=== PATIENT | female | born 1965 | race Caucasian/White ===

== ENCOUNTER 2019-12-31 03:06 | Emergency (ER) | payer OTHER, SELFPAY ==
--- NOTE | 2019-12-31 03:15 | DI.CT.S_ITS ---
PROCEDURE: CT ABDOMEN PELVIS W CON INDICATIONS: 3 days abdominal pain TECHNIQUE: After the administration of intravenous contrast, 5 mm thick sections acquired from the diaphragm to the symphysis. 5 mm coronal and sagittal reformats were acquired. For radiation dose reduction, the following was used: automated exposure control, adjustment of mA and/or kV according to patient size. COMPARISON: None. FINDINGS: Image quality: Excellent. ABDOMEN: Lung bases: Lung bases are clear. Heart size is normal. There is a small hiatal hernia. Solid organs: Liver is normal in size and enhancement. Gallbladder is normal. Biliary system is non dilated. Pancreas enhances normally. Spleen is normal in size and enhancement. No adrenal nodules. Kidneys demonstrate normal size and enhancement, without hydronephrosis. Peritoneum and bowel: Bowel loops demonstrate normal wall thickness and caliber. There are scattered colonic diverticula. No findings to suggest acute diverticulitis. Normal appendix. No free fluid or air. Nodes and vessels: There is fat stranding in the upper abdomen at midline anterior to aorta adjacent to the celiac trunkand superior mesenteric artery. The proximal SMA appears indistinct with decreased enhancement suggesting partial thrombosis. Distally, the celiac trunk and superior mesenteric artery are both patent. No retroperitoneal or mesenteric adenopathy by size criteria. Aorta and inferior vena cava are normal in size. Miscellaneous: No ventral hernias. PELVIS: Genitourinary: Bladder wall thickness is normal. An IUD in uterus. Miscellaneous: No inguinal hernias or adenopathy. Bones: No suspicious bony lesions. No vertebral body compression fractures. Degenerative changes in lumbar spine. IMPRESSION: 1. Fat stranding in the upper abdomen at midline anterior to aorta adjacent to the celiac trunk and SMA. The proximal SMA is indistinct with decreased enhancement suggesting partial thrombosis. Distally, the celiac trunk and superior mesenteric artery are both patent. CT angiogram may be helpful for further evaluation. 2. Diverticulosis without acute diverticulitis. 3. Normal but appendix. 4. Small hiatal hernia. The result was discussed with Dr. Zhang in ER. Dictated by: Sarah Gamez M.D. on 12/31/2019 at 8:46 Approved by: Sarah Gamez M.D. on 12/31/2019 at 9:08
[2019-12-31] MEDS: HYDROMORPHONE 0.5 MG INJ IV (03:19)
[2019-12-31 03:20] VITALS: BP 154/74; PULSE 72; RESP 16; TEMP 36.8; O2SAT 97; BMI 41.1
[2019-12-31] MEDS: SODIUM CHLORIDE 0.9% 1,000 ML 1000 ML IV (03:20)
[2019-12-31 03:28] LABS: Appearance Urine UA CLEAR; Bilirubin Urine UA NEGATIVE (NEGATIVE); Color Urine UA YELLOW; Glucose Urine UA NEGATIVE (Negative); Ketones Urine UA NEGATIVE (NEGATIVE); Leukocyte Esterase Urine UA NEGATIVE (NEGATIVE); Nitrite Urine UA NEGATIVE (Negative); Occult Blood Urine UA NEGATIVE (Negative); Protein Urine UA NEGATIVE (Negative); RBC Urine None Seen (0-5/HPF); Specific Gravity Urine UA 1.025 (1.000-1.035); Urobilinogen Urine UA 0.2 E.U./dL (0.2); WBC Urine None Seen (0-5/HPF)
[2019-12-31 03:29] LABS: pH Urine UA 5.5 (4.5-8.0)
--- NOTE | 2019-12-31 03:37 | ED_ITS ---
HPI - Abdominal Pain General Chief Complaint: Abdominal Pain Stated Complaint: Abdominal pain Time Seen by Provider: 12/31/19 03:10 Source: patient and other Mode of arrival: other History of Present Illness HPI narrative: Otherwise healthy 54-year-old woman presents with 3 days of abdominal pain described as upper abdominal pain radiating through to her back became dramatically worse approximately 3 hours prior to arrival. She lives on [facility] and presents to the emergency department via airlift. She describes no fevers. She initially had a single episode of diarrhea and then has had loosely formed stools that she describes as significantly replenishment analyst and having almost no odor. She describes no fevers, chest pain, dyspnea, wheezing, lower extremity edema. Similarly, no throat pain ear pain skin rashes or findings or arthritis symptoms. Related Data Allergies Allergy/AdvReac Type Severity Reaction Status Date / Time Sulfa (Sulfonamide Allergy Anaphylaxis Verified 12/31/19 03:20 Antibiotics) Review of Systems Review of Systems Narrative: Remainder of review of systems including constitutional, ENT, cardiovascular, respiratory, GI, , musculoskeletal, skin, neurologic and psychiatric systems reviewed and are unremarkable except as noted in HPI. Patient History Surgical History (Updated 12/31/19 @ 03:39 by Mela Harper MD) H/O knee surgery (Acute) History of delivery (Acute) Social History Smoking Status: Never smoker Smoking Status: Never smoker alcohol intake frequency: a few times a week Substance Use Type: does not use Exam Narrative Exam Narrative: General: Healthy appearing, in no acute distress. Able to give a complete and coherent history. Well-nourished well-developed HEENT: Moist mucous membranes, normal sclera with reactive pupils, Neck: No JVD, supple Respiratory: Lungs are clear to auscultation, no wheezing no rales no rhonchi. Full and symmetrical air movement Cardiac: Regular rate and rhythm no murmurs no bruits Abdomen: Soft, tender in the entire upper portion of her abdomen worse in the right upper quadrant with pain radiating through to her back. No paraspinous muscle spasm and, no flank pain Skin: Warm and dry, no rashes Neurologic: Grossly neurologically intact with no obvious asymmetries or abnormalities Extremities: No trauma, well perfused Psych: Cooperative, appropriate insight and affect Initial Vital Signs Initial Vital Signs: Vital Signs Temperature 98.2 F 12/31/19 03:20 Pulse Rate 72 12/31/19 03:20 Respiratory Rate 16 12/31/19 03:20 Blood Pressure 154/74 H 12/31/19 03:20 Pulse Oximetry 97 12/31/19 03:20 Course Orders Ordered: ED Orders 12/31/19 03:15 CT abdomen pelvis w con Stat 12/31/19 03:22 Complete Blood Count AUTO DIFF Stat Comprehensive Metabolic Panel Stat Lipase Stat Magnesium Stat Urinalysis and Microscopic Stat Hydromorphone HCl (Dilaudid) 0.5 mg IV PRN PRN PRN Reason: pain Last Admin: 12/31/19 03:19 Dose: 0.5 mg Documented by: DA Discontinued Medications Sodium Chloride (Normal Saline 0.9%) 1,000 mls @ 1,000 mls/hr IV BOLUS ONE Stop: 12/31/19 04:13 Last Admin: 12/31/19 03:20 Dose: 1,000 mls/hr Documented by: DA Vital Signs Vital signs: Vital Signs - 8 hr 12/31/19 03:20 12/31/19 04:30 Temperature 98.2 F Pulse Rate 72 78 Respiratory Rate 16 Blood Pressure 154/74 H 135/63 Pulse Oximetry 97 95 MDM - Abdominal Pain Medical Records Attestation: I reviewed the patient's medical records. Lab Data Attestation: I reviewed the patient's lab results. Result diagrams: 12/31/19 03:22 12/31/19 03:22 Labs: Lab Results 12/31/19 12/31/19 12/31/19 Range/Units 03:22 03:22 03:22 WBC 9.2 (4.5-11.0) X10^3/uL RBC 4.41 (4.0-5.2) X10^6/uL Hgb 13.1 (12.0-16.0) g/dL Hct 39.9 (36-46) % MCV 90.6 (80-100) fL MCH 29.7 (26-34) PG MCHC 32.7 (30-36) % RDW 12.8 (11.6-14.8) % Plt Count 276 (150-400) X10^3/uL Neut % (Auto) 75.0 (50-75) % Lymph % (Auto) 18.2 L (25-40) % Treasure % (Auto) 5.6 (3-14) % Eos % (Auto) 0.9 L (2-4) % Baso % (Auto) 0.3 (0-2) % Neut # (Auto) 6900 (6898-1950) /uL Lymph # (Auto) 1700 (7208-0783) /uL Treasure # (Auto) 500 (0-900) /uL Eos # (Auto) 100 (0-450) /uL Baso # (Auto) 0 (0-100) /uL Sodium 138 (137-145) mmol/L Potassium 4.2 (3.4-5.1) mmol/L Chloride 103 (98-107) mmol/L Carbon Dioxide 30 (22-32) mmol/L BUN 16 (7-17) mg/dL Creatinine 0.80 (0.52-1.04) mg/dL Estimated GFR > 60.0 (>60) mL/min BUN/Creatinine Ratio 20.0 (6-22) Glucose 136 H (70-100) mg/dL Calcium 10.1 (8.4-10.2) mg/dL Magnesium 2.1 (1.6-2.3) mg/dL Total Bilirubin 0.4 (0.2-1.3) mg/dL AST 21 (14-36) IU/L ALT 22 (<35) IU/L Alkaline Phosphatase 71 (38-126) U/L Total Protein 7.6 (6.3-8.2) g/dL Albumin 4.8 (3.5-5.0) g/dL Globulin 2.8 (1.7-4.1) g/dL Albumin/Globulin Ratio 1.7 (1.0-2.8) Lipase 160 (23-300) U/L Urine Color Yellow Urine Appearance Clear Urine pH 5.5 (4.5-8.0) Ur Specific [place] 1.025 (1.000-1.035) Urine Protein Negative (Negative) Urine Glucose (UA) Negative (Negative) g/dL Urine Ketones Negative (NEGATIVE) Urine Occult Blood Negative (Negative) Urine Nitrate Negative (Negative) Urine Bilirubin Negative (NEGATIVE) Urine Urobilinogen 0.2 (0.2) E.U./dL Ur Leukocyte Esterase Negative (NEGATIVE) Urine RBC None seen (0-5/HPF) Urine WBC None seen (0-5/HPF) Ur Squamous Epith Cells 0-1 /hpf (0-5/HPF) Urine Bacteria Occasional (0-1) (None) Ur Culture Indicated? Cult not indicated Imaging Data CT scan - abdomen/pelvis: Radiologist's Impression: Mild inflammatory changes within the mesenteric fat adjacent to the celiac and superior mesenteric arteries findings may be related to vasculitis. No evidence of colitis, diverticulitis, bowel obstruction, obstructive uropathy or acute appendicitis Bilateral subcentimeter low attenuation renal cortical lesions which are too small to accurately characterize Colonic diverticulosis Electronically signed December 31, 2019 4:46am Airam Han MD ECG Data Attestation: I personally reviewed and interpreted this ECG as follows: Interpretation: EKG done by [employer] crew Sinus rhythm at 95 Normal axis normal intervals No acute STT wave changes MDM Narrative Medical decision making narrative: Patient is reexamined and is feeling significantly better. No acute infection, bowel obstruction, appendicitis, gallbladder disease or pancreatitis. CT scan has some mention of inflammatory changes with suggestions of vasculitis. Patient also has quite a bit of stool loading in the right side of her colon. She notes that she does feel full and bloated. At this point I believe she is safe for home discharge with no surgical or traumatic infectious pathology identified in her abdomen. Will send her home with bottle of magnesium citrate. If cleaning out her colon alleviates her pain all is well. If she has worsening symptoms than additional workup perhaps following the possibility of vasculitis would be the next steps. All of this is reviewed with patient, she is quite comfortable with findings and agrees with plan. She is safe for home discharge Discharge Plan Departure Patient Disposition: Home Clinical Impression: Abdominal pain Qualifiers: Abdominal location: upper abdomen, unspecified Qualified Code(s): R10.10 - Upper abdominal pain, unspecified Instructions: DI for Abdominal Pain-Adult Activity Restrictions/Additional Instructions: Thank you for coming in today. Your workup was actually quite reassuring. There is no evidence of acute infection, pancreatitis, gallbladder disease, bowel obstruction, tumors or masses or other life-threatening issues that would explain her abdominal pain. The radiologist noted finding on the CT scan that showed a bit of inflammation around the blood vessels going to your intestines. This is a nonspecific finding but if your pain is getting worse rare having new symptoms than looking into this further would be appropriate. There is quite a bit of stool in the right side of your colon and that may be contributing to your pain. I am going to send her home with a bottle of magnesium citrate to help the you clean out your entire colon. If you develop new or worsening pain, fevers, uncontrolled vomiting or diarrhea it would be appropriate to return for further evaluation. I hope you feel better
[2019-12-31 03:39] LABS: Bacteria Urine Occasional (0-1); Culture Indicated Urine Cult Not Indicated; Squamous Epithelial Cell Urine 0-1 /HPF (0-5/HPF)
[2019-12-31 03:49] LABS: Add Manual Diff / Slide Review NO; Basophils Absolute Auto 0 /uL (0-100); Basophils Percent Auto 0.3 % (0-2); Eosinophils Absolute Auto 100 /uL (0-450); Eosinophils Percent Auto 0.9 % (2-4); Hematocrit 39.9 % (36-46); Hemoglobin 13.1 g/dL (12.0-16.0); Lymphocytes Absolute Auto 1700 /uL (1100-4500); Lymphocytes Percent Auto 18.2 % (25-40); Mean Corpuscular HGB Conc 32.7 % (30-36); Mean Corpuscular Hemoglobin 29.7 PG (26-34); Mean Corpuscular Volume 90.6 fL (80-100); Monocytes Absolute Auto 500 /uL (0-900); Monocytes Percent Auto 5.6 % (3-14); Neutrophils Absolute Auto 6900 /uL (1500-7000); Platelet Count 276 X10^3/uL (150-400); Red Blood Cell Count 4.41 X10^6/uL (4.0-5.2); Red Cell Distribution Width 12.8 % (11.6-14.8); White Blood Cell Count 9.2 X10^3/uL (4.5-11.0)
[2019-12-31 03:52] LABS: Alanine Aminotransferase 22 IU/L (<35); Albumin 4.8 g/dL (3.5-5.0); Albumin Globulin Ratio 1.7 (1.0-2.8); Alkaline Phosphatase 71 U/L (38-126); Aspartate Aminotransferase 21 IU/L (14-36); Bilirubin Total 0.4 mg/dL (0.2-1.3); Blood Urea Nitrogen 16 mg/dL (7-17); Calcium 10.1 mg/dL (8.4-10.2); Carbon Dioxide 30 mmol/L (22-32); Chloride 103 mmol/L (98-107); Estimated Glomerular Filt Rate > 60.0 mL/min (>60); Globulin 2.8 g/dL (1.7-4.1); Glucose 136 mg/dL (70-100); HEMOLYSIS < 15 (0-50); Lipase 160 U/L (23-300); Magnesium 2.1 mg/dL (1.6-2.3); Potassium 4.2 mmol/L (3.4-5.1); Sodium 138 mmol/L (137-145); Total Protein 7.6 g/dL (6.3-8.2)
[2019-12-31 04:30] VITALS: BP 135/63; PULSE 78; O2SAT 95
[2019-12-31] MEDS: MAGNESIUM CITRATE 300 ML SOLUTION PO (05:11)
== END 2019-12-31 05:20 | disposition home or self-care (01) ==
PROVIDERS: Emergency Provider Emergency Medicine
DX: R10.10 Upper abdominal pain, unspecified (principal); R14.0 Abdominal distension (gaseous)
CPT/HCPCS: 36415; 74177; 80053; 81001; 83690; 83735; 85025; 96361; 96374; 99284; J1170; Q9967

== ENCOUNTER → 2021-04-10 08:07 | Outpatient (CLI) | payer OTHER, SELFPAY ==
[2021-04-10 18:48] LABS: Alanine Aminotransferase 19 IU/L (<35); Albumin 4.4 g/dL (3.5-5.0); Albumin Globulin Ratio 1.7 (1.0-2.8); Alkaline Phosphatase 59 U/L (38-126); Aspartate Aminotransferase 24 IU/L (14-36); BUN Creatinine Ratio 12.4 (6-22); Bilirubin Total 0.3 mg/dL (0.2-1.3); Blood Urea Nitrogen 11 mg/dL (7-17); Calcium 9.8 mg/dL (8.4-10.2); Carbon Dioxide 31 mmol/L (22-32); Chloride 101 mmol/L (98-107); Cholesterol 267 mg/dL (140-199); Estimated Glomerular Filt Rate > 60.0 mL/min (>60); Globulin 2.6 g/dL (1.7-4.1); Glucose 100 mg/dL (70-100); HDL Cholesterol 44 mg/dL (40-60); HEMOLYSIS < 15 (0-50); LDL Cholesterol Calculated 193 mg/dL (<100); Potassium 4.3 mmol/L (3.4-5.1); Sodium 139 mmol/L (137-145); Triglycerides 152 mg/dL (35-150)
[2021-04-10 19:39] LABS: Hemoglobin A1C% w Est Avg Glu 5.3 % (4.0-6.0)
== END ==
PROVIDERS: PCP Physician Assistant; Visit Provider Physician Assistant
DX: E78.00 Pure hypercholesterolemia, unspecified (principal); R73.09 Other abnormal glucose
CPT/HCPCS: 80053; 80061; 83036

== ENCOUNTER → 2021-11-26 10:43 | Outpatient (CLI) | payer OTHER, SELFPAY ==
[2021-11-26 19:25] LABS: Add Manual Diff / Slide Review NO; Basophils Absolute Auto 100 /uL (0-100); Basophils Percent Auto 0.9 % (0-2); Eosinophils Absolute Auto 100 /uL (0-450); Eosinophils Percent Auto 2.4 % (2-4); Hematocrit 38.9 % (36-46); Hemoglobin 13.4 g/dL (12.0-16.0); Lymphocytes Absolute Auto 2300 /uL (1100-4500); Lymphocytes Percent Auto 41.2 % (25-40); Mean Corpuscular HGB Conc 34.5 % (30-36); Mean Corpuscular Hemoglobin 31.1 PG (26-34); Mean Corpuscular Volume 90.1 fL (80-100); Monocytes Absolute Auto 300 /uL (0-900); Neutrophils Absolute Auto 2700 /uL (1500-7000); Neutrophils Percent Auto 49.5 % (50-75); Platelet Count 251 X10^3/uL (150-400); Red Blood Cell Count 4.32 X10^6/uL (4.0-5.2); Red Cell Distribution Width 12.8 % (11.6-14.8); White Blood Cell Count 5.5 X10^3/uL (4.5-11.0)
[2021-11-26 19:32] LABS: Alanine Aminotransferase 20 IU/L (<35); Albumin 4.6 g/dL (3.5-5.0); Albumin Globulin Ratio 1.6 (1.0-2.8); Alkaline Phosphatase 65 U/L (38-126); Aspartate Aminotransferase 44 IU/L (14-36); BUN Creatinine Ratio 16.7 (6-22); Bilirubin Total 0.6 mg/dL (0.2-1.3); Blood Urea Nitrogen 14 mg/dL (7-17); Calcium 9.2 mg/dL (8.4-10.2); Carbon Dioxide 29 mmol/L (22-32); Chloride 103 mmol/L (98-107); Cholesterol 185 mg/dL (140-199); Estimated Glomerular Filt Rate > 60 mL/min (>60); Globulin 2.8 g/dL (1.7-4.1); Glucose 90 mg/dL (70-100); HDL Cholesterol 47 mg/dL (40-60); HEMOLYSIS < 15 (0-50); LDL Cholesterol Calculated 117 mg/dL (<100); Potassium 4.2 mmol/L (3.4-5.1); Sodium 139 mmol/L (137-145); Total Protein 7.4 g/dL (6.3-8.2); Triglycerides 106 mg/dL (35-150)
[2021-11-26 19:59] LABS: TSH w/ Reflex to FT4 2.57 uIU/mL (0.47-4.68)
[2021-11-28 03:33] LABS: IGF-1 106 ng/mL (65-216)
== END ==
PROVIDERS: PCP Physician Assistant; Visit Provider Physician Assistant
DX: E78.5 Hyperlipidemia, unspecified (principal); M25.50 Pain in unspecified joint
CPT/HCPCS: 80053; 80061; 82306; 84305; 84443; 85025

== ENCOUNTER → 2021-12-06 10:41 | Outpatient (CLI) | payer OTHER, SELFPAY ==
[2021-12-06 19:44] LABS: Erythrocyte Sedimentation Rate 7 MM/HR (0-20)
[2021-12-07 02:00] LABS: C-Reactive Protein Quant < 0.5 mg/dL (<1.0); Uric Acid 5.9 mg/dL (2.5-6.2)
[2021-12-07 02:38] LABS: Rheumatoid Factor < 8.6 IU/mL (<12.0)
[2021-12-08 19:42] LABS: ANA Screen, IFA Positive (.)
== END ==
PROVIDERS: PCP Physician Assistant; Visit Provider Physician Assistant
DX: M25.449 Effusion, unspecified hand (principal); M25.476 Effusion, unspecified foot
CPT/HCPCS: 84550; 85651; 86038; 86140; 86430

== ENCOUNTER → 2022-11-27 15:12 | Outpatient (CLI) | payer OTHER, SELFPAY ==
--- NOTE | 2022-11-27 | DI.RAD.S_ITS ---
Bone Density Report Name: GERRI ROMERO Age: 57 Sex: Female Ethnicity: White Date of : 1965 Indication: postmenopausal; screening for osteoporosis; Referring Provider: GERRY STONE Study: Bone densitometry was performed. Exam Date: November 27, 2022 Accession number: [id number] Bone Density: Region BMD T-score Z-score Classification AP Spine(L1-L4) 0.923 -1.1 0.0 Osteopenia Femoral Neck (Left) 0.913 0.6 1.7 Normal Total Hip (Left) 1.093 1.2 2.0 Normal Femoral Neck (Right) 0.912 0.6 1.7 Normal Total Hip (Right) 1.070 1.0 1.8 Normal Total Hip Mean 1.082 1.1 1.9 Normal World Health Organization criteria for BMD impression classify patients as: Normal (T-score at or above -1.0), Osteopenia (T-score between -1.0 and -2.5), or Osteoporosis (T-score at or below -2.5). 10-year Fracture Risk(1): Major Osteoporotic Fracture 4.5% Hip Fracture 0.1% Reported Risk Factors: [place] (), Neck BMD=0.912, BMI=42.1 (1) FRAX(R) Version 3.08. Fracture probability calculated for an untreated patient. Fracture probability may be lower if the patient has received treatment. Impression: The patient has low bone mass, based on the Total Spine T-score. The patient has an estimated ten-year risk of hip fracture of 0.1% and an estimated ten-year risk of major fracture of 4.5%, based on the WHO FRAX algorithm. Discussion: BONE DENSITY IS LOW AT ONE OR MORE SKELETAL SITES. This patient's lowest T-score is low at one or more skeletal sites. It meets the World Health Organization's (WHO) criteria for low bone mass (T-score between -1.0 and -2.5). The patient's 10-year risk of fracture as calculated by FRAX is less than the threshold where pharmacological therapy is recommended by the National Osteoporosis Foundation (NOF). However, all treatment decisions require clinical judgment and consideration of individual patient factors, including patient preferences, comorbidities, previous drug use, risk factors not captured in the FRAX model (e.g., frailty, falls, vitamin D deficiency, increased bone turnover, interval significant decline in bone density) and possible under or overestimation of fracture risk by FRAX. The patient should follow a healthful lifestyle (good nutrition with adequate calcium and vitamin D, and appropriate weight-bearing exercise). Follow-Up: Consider repeating this study in 2 to 3 years to reassess this patient's status, or sooner if there is some new clinical indication. Reported by: SOFIE BECKER M.D. on 11/27/2022 4:07:00 PM.
--- NOTE | 2022-11-27 | DI.US.S_ITS ---
ULTRASOUND OF LEFT BREAST AND AXILLA: 11/27/2022 CLINICAL: Puffy left axilla. Question lymph node. Comparison is made to exam dated: 09/18/2022 mammogram - [facility]. Color flow and real-time ultrasound of the left breast axilla were performed. Chavez scale images of the real-time examination were reviewed. No significant abnormalities were seen sonographically in the left axilla. IMPRESSION: NEGATIVE There is no sonographic evidence of malignancy. There is no abnormality seen in the left axilla to correspond with the area of clinical concern, however, clinical correlation and clinical followup are recommended. Return to annual mammogram screening schedule is recommended. This exam was interpreted at Station ID: [id number]. Electronically Signed By: Arias Caldera M.D. lc/:11/27/2022 15:48:45 copy to: BERRY PILLAI letter sent: Clinical Evaluation Ultrasound BI-RADS: 1 Negative
== END ==
PROVIDERS: PCP Family Medicine; Referring Provider Family Medicine; Visit Provider Family Medicine
DX: Z13.820 Encounter for screening for osteoporosis (principal); M79.629 Pain in unspecified upper arm; N63.32 Unspecified lump in axillary tail of the left breast; Z78.0 Asymptomatic menopausal state; M85.88 Other specified disorders of bone density and structure, other site
CPT/HCPCS: 76882; 77080

== ENCOUNTER → 2023-04-02 10:47 | Outpatient (CLI) | payer OTHER, SELFPAY ==
--- NOTE | 2023-04-02 10:49 | DI.CT.S_ITS ---
PROCEDURE: CT IVP A/P W/WO INDICATIONS: OAB/URGE INCONTINENCE/POST VOID DRIBBLING TECHNIQUE: Optional 5 mm thick noncontrast images acquired from the diaphragm to the symphysis pubis. After the administration of intravenous contrast, 5 mm thick images acquired from the diaphragm to the symphysis pubis after a 10-minute delay. 2 mm thick coronal and sagittal reformats were then performed of the kidneys and ureters. For radiation dose reduction, the following was used: automated exposure control, adjustment of mA and/or kV according to patient size. COMPARISON: None. FINDINGS: Image quality: Excellent. Lung bases: Lung bases are clear. Heart size is normal. Urinary system: Right kidney: There is a mild right hydronephrosis. No right renal stone. No right renal mass. Right ureter: The right ureter is moderately dilated proximally. At the mid to distal ureter, it assumes a normal caliber. No stone is identified. Left kidney: No mass, stone, or hydronephrosis. Left ureter: Unremarkable Bladder: No bladder stones. No bladder wall thickening. No luminal filling defects in the bladder. No anterior pelvic relaxation period no cystocele identified. Other solid organs: Liver is normal in size and enhancement. Gallbladder is unremarkable . Biliary system is non dilated. Pancreas enhances normally. Spleen is normal in size and enhancement. No adrenal nodules. Peritoneum and bowel: Bowel loops demonstrate normal wall thickness and caliber. No free fluid or air. Nodes and vessels: No retroperitoneal or mesenteric adenopathy by size criteria. Aorta and inferior vena cava are normal in size. Abdominal wall: No ventral hernias. Pelvis: No pathologic free pelvic fluid. No inguinal hernias or adenopathy. Bones: No suspicious bony lesions. No vertebral body compression fractures. IMPRESSION: 1. There is mild right hydronephrosis and moderate dilatation of the right ureter proximally with normal caliber involving the distal right ureter. Cannot exclude a ureteral stricture or ureteral mass. No ureteral stone is identified. 2. Left kidney, ureter, and bladder are unremarkable. Comment: Recommend consideration of right retrograde pyelography if this has not yet been performed. Dictated by: Case Duncan M.D. on 04/02/2023 at 17:20 Approved by: Case Duncan M.D. on 04/02/2023 at 17:32
== END ==
PROVIDERS: PCP Family Medicine; Referring Provider Urology; Visit Provider Urology
DX: N13.30 Unspecified hydronephrosis (principal); N28.82 Megaloureter; N32.81 Overactive bladder; N39.41 Urge incontinence; N39.43 Post-void dribbling; R35.0 Frequency of micturition; R35.1 Nocturia; Q62.5 Duplication of ureter
CPT/HCPCS: 74178; Q9967

== ENCOUNTER → 2023-07-04 09:48 | Outpatient (CLI) | payer OTHER, SELFPAY ==
--- NOTE | 2023-07-04 09:49 | DI.US.S_ITS ---
PROCEDURE: US PELVIC COMPLETE INDICATIONS: SPOTTING X 1-2 DAYS AFTER STARTING PROGESTERONE/ESTROGEN TECHNIQUE: Real-time scanning was performed of the pelvic organs, with image documentation. Additional endovaginal scanning was necessary due to incomplete visualization of the adnexal and endometrial structures by transabdominal scanning. COMPARISON: [facility], CT, CT IVP A/P W/WO, 04/02/2023, 10:58. FINDINGS: Uterus: Uterus is anteverted and normal in size at 9.2 x 5.2 x 4.6 cm. The myometrium is heterogeneous. The endometrium is very poorly characterized but appears to measure approximately 12 mm in diameter. A 4 mm cyst is present within the endometrium. Ovaries: The ovaries are not visualized. Other: No pathologic free abdominal or pelvic fluid. IMPRESSION: 1. Questionable thickened endometrium. This is an abnormal finding in a postmenopausal female. Hypertrophy and neoplasm cannot be excluded. Please consider endometrial biopsy. If better characterization of the endometrium is warranted, gynecologic protocol MRI could be used. We strive to produce accurate, complete, and clear reports of imaging services. To assist us in improving patient care, this report was composed using standard report templates and voice recognition software. Therefore, it may contain abnormal punctuation, insertions and/or omissions. Occasional wrong-word or sound-alike substitutions may occur. Though we review the report and make efforts to correct it, we do recommend that the report be read carefully in proper context to recognize any text inaccuracies. Dictated by: Mackenzie Bonner M.D. on 07/04/2023 at 12:09 Approved by: Mackenzie Bonner M.D. on 07/04/2023 at 12:13
== END ==
LOC: US 09:49
PROVIDERS: PCP Family Medicine; Referring Provider Family Medicine; Visit Provider Family Medicine
DX: N93.9 Abnormal uterine and vaginal bleeding, unspecified (principal); N85.8 Other specified noninflammatory disorders of uterus
CPT/HCPCS: 76830; 76856

== ENCOUNTER → 2023-08-06 15:28 | Outpatient (CLI) | payer OTHER, SELFPAY ==
[2023-08-06 17:37] LABS: Add Manual Diff / Slide Review NO; Basophils Absolute Auto 0 /uL (0-100); Basophils Percent Auto 0.7 % (0-2); Eosinophils Absolute Auto 100 /uL (0-450); Eosinophils Percent Auto 2.1 % (2-4); Hemoglobin 14.2 g/dL (12.0-16.0); Lymphocytes Absolute Auto 2400 /uL (1100-4500); Lymphocytes Percent Auto 35.8 % (25-40); Mean Corpuscular HGB Conc 33.9 % (30-36); Mean Corpuscular Volume 88.7 fL (80-100); Monocytes Absolute Auto 500 /uL (0-900); Monocytes Percent Auto 6.7 % (3-14); Neutrophils Absolute Auto 3700 /uL (1500-7000); Neutrophils Percent Auto 54.7 % (50-75); Platelet Count 274 X10^3/uL (150-400); Red Blood Cell Count 4.74 X10^6/uL (4.0-5.2); White Blood Cell Count 6.7 X10^3/uL (4.5-11.0)
[2023-08-06 17:44] LABS: BUN Creatinine Ratio 19.5 (6-22); Blood Urea Nitrogen 15 mg/dL (7-17); Calcium 9.8 mg/dL (8.4-10.2); Carbon Dioxide 29 mmol/L (22-32); Chloride 104 mmol/L (98-107); Estimated Glomerular Filt Rate > 60 mL/min (>60); Glucose 88 mg/dL (70-100); HEMOLYSIS < 15 (0-50); Potassium 4.3 mmol/L (3.4-5.1); Sodium 140 mmol/L (137-145)
== END ==
PROVIDERS: PCP Family Medicine; Referring Provider Family Medicine; Visit Provider Family Medicine
DX: Z01.812 Encounter for preprocedural laboratory examination (principal); Z01.818 Encounter for other preprocedural examination
CPT/HCPCS: 36415; 80048; 85025

== ENCOUNTER 2023-08-07 06:46 | Day surgery (SDC) | payer OTHER, SELFPAY ==
[2023-08-05 14:24] VITALS: BMI 41.6
--- NOTE | 2023-08-07 | PATH_ITS ---
[facility] Accession Number: [id number] No. of containers..02 Tissue . 01 Material submitted: . PART A: cervix - ENDOCERVICAL CURETTINGS / CERVICAL POLYP PART B: endometrium - ENDOMETRIAL CURETTINGS . 01 Diagnosis: A. ENDOCERVICAL CURETTINGS AND CERVICAL POLYP, BIOPSY: Benign endocervical polyp. Benign endocervical tissue and scant endometrium also present. Negative for dysplasia and malignancy. . B. ENDOMETRIUM, CURETTINGS: Strips and superficial fragment of benign, inactive endometrium, suggestive of atrophy. Benign ectocervical/scant endocervical epithelium also present. Negative for significant cytologic atypia, hyperplasia, and malignancy. See comment. [facility] 08/12/2023 1659 Local . 01 Comment: The findings are suggestive of atrophy. Clinical and radiologic correlation is recommended to ensure that this superficial biopsy is sales representative livestock of the endometrium as a whole. . 01 Electronically signed: . Francine Aburto MD, Pathologist NPI- [id number] . 01 Gross description: . A. Received in formalin labeled with the patient's name, , and endocervical curettings and cervical polyp, and consists of multiple groves soft tissue fragments admixed with mucoid material aggregating to 2.5 x 1.3 x 0.1 cm. Filtered and submitted entirely in cassette A1. B. Received in formalin labeled with the patient's name, , and endometrial curettings, and consists of multiple groves soft tissue fragments admixed with mucoid material aggregating to 1.3 x 1.2 x 0.1 cm. Filtered and submitted entirely in cassette B1. ([id number]) /EVELYN 08/09/2023 2237 Local . 01 Pathologist provided ICD-10: N95.0 . 01 CPT . 628922, 154420 Specimen Comment: A courtesy copy of this report has been sent to [phone] Performed at: 01 [facility] [address] [place] [address], [place], [place] [id number] MD Yonas Alcantara MD Phone: [phone]
[2023-08-07 07:13] VITALS: BP 115/75; PULSE 95; RESP 18; TEMP 36.1; O2SAT 98; BMI 41.6
[2023-08-07] MEDS: LACTATED RINGERS 1,000 ML 42 ML IV (07:28)
--- NOTE | 2023-08-07 07:29 | PM.PREOP ---
Pre-operative Note COVID-19 COVID-19 status: Not tested Interval Note History & Physical reviewed/Exam performed by Physician: Yes Changes to H&P: No
--- NOTE | 2023-08-07 08:04 | SUR.OPER ---
Lithotomy on padded OR bed, head on pillow, arms secured on padded arm boards at <90 degrees abduction. Legs secured in padded yellow fins stirrups.
[2023-08-07] MEDS: CEFAZOLIN 2 GM/100 ML PREMIX 100 ML IV (08:50)
[2023-08-07 09:23] VITALS: BP 125/79; PULSE 85; RESP 14; TEMP 36.2; O2SAT 94
[2023-08-07 09:28] VITALS: BP 121/79; PULSE 73; RESP 14; O2SAT 96
--- NOTE | 2023-08-07 09:30 | P.OP_ITS ---
Operative Date/Time/Diagnoses Date of procedure: 08/07/23 Time of procedure: 08:40 Pre-op diagnosis: Postmenopausal bleeding Thickened endometrium on ultrasound evaluation Post-op diagnosis: same Procedure & Clinicians Procedure: Procedures Operation Date: 08/07/23 07:45 Actual Procedure Side Surgeon p Hysteroscopy D&C of Uterus Dakota Worrell MD Indications: Ivett is a 58-year-old female who presents today for evaluation of an isolated episode of vaginal spotting immediately after initiating CombiPatch which prompted a pelvic ultrasound demonstrating a 12 mm endometrial stripe with a 4 mm endometrial cyst also noted. Because of the episode of bleeding in the ultrasound findings, she is now referred by her primary care provider for evaluation. Patient is not currently taking hormone replacement therapy and has never used HRT. Current BMI is 41.6. Pelvic ultrasound performed 07/04/2023 shows: FINDINGS: Uterus: Uterus is anteverted and normal in size at 9.2 x 5.2 x 4.6 cm. The myometrium is heterogeneous. The endometrium is very poorly characterized but appears to measure approximately 12 mm in diameter. A 4 mm cyst is present within the endometrium. Ovaries: The ovaries are not visualized. Other: No pathologic free abdominal or pelvic fluid. IMPRESSION: 1. Questionable thickened endometrium. This is an abnormal finding in a postmenopausal female. Hypertrophy and neoplasm cannot be excluded. Please consider endometrial biopsy. If better characterization of the endometrium is warranted, gynecologic protocol MRI could be used. The patient has been counseled by her primary care provider regarding options for evaluating the endometrial stripe and she would prefer the most definitive evaluation possible in form of hysteroscopy with dilation and curettage of the uterus rather than in office endometrial sampling. She is also scheduled to have knee replacement surgery in August and would therefore prefer to move quickly to get the procedure performed. Although she receives her care here in [place], she resides in [place], 6 hours away from [place]. Patient states she also requires SBE prophylaxis for all procedures. We had an extended discussion regarding potential causes of her postmenopausal bleeding and endometrial thickening. Endometrial sampling in office is a helpful and highly specific option but is not 100% accurate due to the random nature of sampling. The patient would prefer instead to pursue an evaluation modality which is as close to 100% accurate as possible and therefore will schedule hysteroscopy with D&C to more fully evaluate the endometrial cavity. Case request submitted and the patient is to be contacted by our surgical instrument maker. Because the patient lives 6 hours away, will perform preop evaluation and consent on the day of surgery rather than having to have her make a separate trip for preoperative visit. In addition the patient will require SBE prophylaxis with a single dose of IV Ancef at the time of surgery. She presents today for her scheduled surgery Surgeon: Dakota Worrell Anesthesia Type: General Operative Notes Findings: The endometrial cavity is unremarkable and the endometrium itself is not thickened rather atrophic. There are a couple of small polyps in the endocervical canal which were removed by curettage. No other abnormalities were noted. Closure Type: not applicable Specimen(s): endometrial curettings and other (Endocervical curettings) Estimated blood loss (mL): 5 Blood products transfused: none Procedure in detail: With the patient under general LMA in the modified dorsal lithotomy position, the perineum, vagina, and lower abdomen were prepped and draped in the usual fashion for hysteroscopy with endometrial ablation. A pre-surgical safety time- out was then taken in accordance with [facility] Main OR protocols. A bivalve speculum was inserted in the vagina and the cervix visualized. The anterior lip of the cervix was grasped with a single-tooth tenaculum and the endocervical canal was then dilated to 6 mm diameter. Hysteroscope was placed through the endocervical canal into the endometrial cavity and the cavity was visualized. There were no localized abnormalities within the endometrial cavity and the endometrium itself was unremarkable. Both tubal ostia were visualized. The hysteroscope was then withdrawn and a fractional dilation and curettage was accomplished with separate pathologic specimen submitted for the endometrial and endocervical curettings. The tenaculum was then removed from the anterior lip of the cervix and no bleeding was encountered. The speculum was then removed from the vagina and the patient awakened from anesthesia. She was then transferred to the PACU for a period of observation and recovery having tolerated the procedure well. Complications: none Post-operative Condition: stable Disposition: PACU Plan for aftercare: Routine post-op care.
[2023-08-07 09:33] VITALS: BP 132/79; PULSE 70; RESP 13; O2SAT 95
[2023-08-07 09:40] VITALS: BP 129/82; PULSE 71; RESP 16; TEMP 36.6; O2SAT 95
[2023-08-07] MEDS: OXYCODONE IR 5 MG TABLET PO (09:49)
== END 2023-08-07 10:03 | disposition home or self-care (01) ==
PROVIDERS: PCP Family Medicine; Referring Provider Obstetrics & Gynecology; Visit Provider Obstetrics & Gynecology
PROC: 0UDB8ZZ Extraction of Endometrium, Via Natural or Artificial Opening Endoscopic (ICD-10-PCS; CPT 58558; principal; 2023-08-07 07:45)
DX: N95.0 Postmenopausal bleeding (principal)
CPT/HCPCS: 58558; J0690; J1100; J1885; J2250; J2405; J2704; J3010

== ENCOUNTER → 2024-03-15 14:51 | Outpatient (CLI) | payer BC, SELFPAY ==
--- NOTE | 2024-03-15 14:53 | DI.US.S_ITS ---
PROCEDURE: US PELVIC COMPLETE INDICATIONS: ENDOMETRIAL THICKENING TECHNIQUE: Real-time scanning was performed of the pelvic organs, with image documentation. Additional endovaginal scanning was necessary due to incomplete visualization of the adnexal and endometrial structures by transabdominal scanning. COMPARISON: [facility], , US PELVIC COMPLETE, 07/04/2023, 10:16. FINDINGS: Uterus: Uterus is anteverted and normal in size at 9.7 x 6.2 x 4.9 cm. The myometrium is heterogeneous. The endometrium measures 12 mm combined thickness. Endometrium is homogeneous. No fibroids. Small nabothian cysts. Ovaries: Ovaries are not seen. No cystic lesion. Other: No pathologic free abdominal or pelvic fluid. IMPRESSION: 1. Endometrium measures 12 mm. 2. Ovaries are not seen. No free fluid. We strive to produce accurate, complete, and clear reports of imaging services. To assist us in improving patient care, this report was composed using standard report templates and voice recognition software. Therefore, it may contain abnormal punctuation, insertions and/or omissions. Occasional wrong-word or sound-alike substitutions may occur. Though we review the report and make efforts to correct it, we do recommend that the report be read carefully in proper context to recognize any text inaccuracies. Dictated by: Bret Gallardo M.D. on 03/15/2024 at 23:31 Approved by: Bret Gallardo M.D. on 03/15/2024 at 23:33
== END ==
PROVIDERS: PCP Family Medicine; Referring Provider Family Medicine; Visit Provider Family Medicine
DX: N95.0 Postmenopausal bleeding (principal)
CPT/HCPCS: 76830; 76856

== ENCOUNTER 2024-05-06 10:52 | Day surgery (SDC) | payer BC, SELFPAY ==
[2024-05-03 14:20] VITALS: BMI 35.8
[2024-05-06] VITALS (10 sets, daily range): BP systolic 94–137; BP diastolic 50–78; PULSE 63–97; RESP 12–17; TEMP 36.1–37; O2SAT 95–100; BMI 35.8
--- NOTE | 2024-05-06 | PATH_ITS ---
[facility] Accession Number: [id number] No. of containers..01 Tissue . 01 Material submitted: . uterus - UTERUS,CERVIX . 01 Diagnosis: UTERUS, CERVIX, LAPAROSCOPIC TOTAL HYSTERECTOMY (WEIGHT 120 GRAMS): Cervix with patchy parakeratosis and otherwise no significant histomorphologic abnormality. Endocervix with no significant histomorphologic abnormality. Disordered proliferative endometrium; negative for endometrioid intraepithelial neoplasia or malignancy. Myometrium with a small leiomyoma (3 mm) and a small adenomyoma (4 mm). Uterine serosa with patchy nonspecific adhesions (grossly described as a serosal band at the lower uterine segment). [facility] 05/10/2024 1043 Local . 01 Electronically signed: . Nicole Blair MD, Pathologist NPI- [id number] . 01 Gross description: . Received in formalin with two patient identifiers and uterus cervix, is an intact uterus (121 grams, 10.5 cm superior to inferior, 6.7 cm medial to lateral, 4.4 cm anterior to posterior), with attached cervix (3.0 x 2.8 cm) and no additional adnexa. . The serosal reflections are identifiable; however, a portion of serosa extends in a band from the posterior across the anterior lower uterine segment (4.0 x 2.0 cm). The anterior paracervical margin is inked blue while the posterior paracervical margin is inked black. The ectocervix is groves and glistening with a patulous os, 0.6 cm in diameter. The serosa is groves, smooth, and unremarkable. . The endocervical canal has groves herringbone mucosa and measures 4.2 cm in length. The endometrial cavity measures 3.0 cm from cornu to cornu, and 5.2 cm in length with red velvety endometrium that averages 0.3 cm thick. The myometrium is groves and mildly trabecular with two well-circumscribed white whorled nodules measuring 0.3 and 0.4 cm in greatest dimension. The myometrium measures up to 2.3 cm in maximum thickness. . [employer] sections are submitted as follows: A1: Anterior posterior cervix. A2: Anterior full thickness section. A3: Posterior full thickness section. A4: Endocervical canal with band of serosa. A5: Nodules. ([id number]) /MRV 05/07/20244 Local . 01 Pathologist provided ICD-10: N81.10, N81.2 . 01 CPT . 059267 Specimen Comment: A courtesy copy of this report has been sent to [phone] Performed at: [address] [id number] MD Yonas Alcantara MD Phone: [phone]
[2024-05-06] MEDS: ACETAMINOPHEN 325 MG TABLET 975 MG PO (11:25)
--- NOTE | 2024-05-06 11:27 | SUR.OPER ---
Lithotomy on padded OR bed. Channahon Pad Positioner under torso. Head on pillow, arms padded and tucked at sides. Legs secured in padded yellow fins stirrups.
--- NOTE | 2024-05-06 11:54 | PM.PREOP ---
Pre-operative Note COVID-19 COVID-19 status: Not tested Interval Note History & Physical reviewed/Exam performed by Physician: Yes Changes to H&P: No
[2024-05-06] MEDS: CEFAZOLIN 2 GM/100 ML PREMIX 100 ML IV (12:10)
[2024-05-06] MEDS: ROPIVACAINE 0.2% PF 2 MG/ML 10ML AMP 20 ML INJ (12:46)
[2024-05-06] MEDS: BUPIVACAINE 0.5% (PF) 30 ML, EPINEPHrine 0.15 MG INJ (12:47)
[2024-05-06] MEDS: LACTATED RINGERS 1,000 ML 42 ML IV (13:14)
--- NOTE | 2024-05-06 15:26 | PM.GYNOP.1 ---
Operative Date/Time/Diagnoses Date of procedure: 05/06/24 Time of procedure: 12:00 Pre-op diagnosis: Post menopausal bleeding Cystocele Stress urinary incontinence Post-op diagnosis: same Procedure & Clinicians Procedure: Procedures Operation Date: 05/06/24 12:00 Actual Procedure Side Surgeon p Laparoscopic Total Hysterectomy Dakota Worrell MD s Anterior Colporrhaphy Dakota Worrell MD s midurethral sling placement with cystoscopy Dakota Worrell MD Indications: Ivett returns now a little more than 7 months following hysteroscopy with D&C for postmenopausal bleeding and thickened endometrium. Pathology at that time showed benign endocervical polyps and atrophic endometrium. Since her surgery, she has continued to spot episodically despite adjustment of her postmenopausal HRT regimen from combo patch to transdermal estradiol and oral micronized progesterone. In addition she feels as though she has increased sense of pelvic pressure ring and feel something at the vaginal opening which concerns her. Her Paps have always been normal with her most recent Pap performed by her primary care provider about a year ago. Review of systems is also positive for stress urine incontinence without an urge component. RWe had an extended discussion about the nature of pelvic organ prolapse, stress urinary incontinence, and potential causes for her persistent postmenopausal bleeding. We also discussed at length, potential options for treatment/correction of these various issues. Patient desires definitive therapy to eliminate postmenopausal bleeding and to treat her pelvic organ prolapse which seems to be becoming more symptomatic. After considering all options, patient desires to move forward with total laparoscopic hysterectomy and bilateral salpingo oophorectomy, with uterosacral ligament vault suspension, anterior colporrhaphy, and placement of mid urethral sling with cystoscopy. She presents today for her scheduled surgery. Surgeon: Dakota Worrell Hemming And Tacking Machine Operator: Margarita Crews Anesthesia Type: General Operative Notes Findings: There are extensive adhesions of the omentum involving the anterior abdominal wall with the only clear spaces in the left lateral mid quadrant as well as the suprapubic area. The right side of the abdomen is involved not only with the omental adhesions but also adhesions involving the cecum and ascending colon which precludes placement of any ports on the right side. The uterus is normal in size and shape with significant scarring in the anterior cul-de-sac from prior sections. The tubes and ovaries appear normal but are encased in adhesions which precluded there safe removal at laparoscopy. The sites at which placement of laparoscopic ports could be safely accomplished was not appropriate for safe ineffective performance of laparoscopic uterosacral ligament vault suspension. The posterior cul-de-sac was free of adhesions. The bladder was normal 2 cystoscopic inspection with no evidence of injury during the course of the surgery Closure Type: primary Specimen(s): uterus Applied: catheter Estimated blood loss (mL): 125 Blood products transfused: none Procedure in detail: With the patient under satisfactory general anesthesia in the modified dorsal lithotomy position, perineum, vagina, and abdomen were prepped and draped in the usual for total laparoscopic hysterectomy and vaginal surgery. A pre-surgical safety time-out was taken in accordance with [facility] Main OR protocols. A weighted speculum was inserted in the vagina and the anterior vaginal wall inspected. A Laboy catheter was inserted in the bladder and the mid urethra was identified by palpation of the Laboy bulb. Once the mid urethra had been identified, 2 Allis clamps were placed and the area of incision infiltrated with 0.25% Marcaine with epinephrine. A 2 cm longitudinal incision of the vaginal mucosa overlying the mid urethra was then made and using Metzenbaum scissors the dissection was carried lateral on both sides so as to be able to safely introduce the retropubic tension-free vaginal tape. The TVT needle was placed 1st on the right side followed by placement of a left up through the suprapubic skin. The needle tips were brought out through the skin and remained in place while the Laboy catheter was removed and cystoscopy performed with findings as noted above. The TVT needles were then brought up through the suprapubic incisions and removed with suture scissors. The mid urethral sling was then appropriately positioned under the mid urethra and the plastic sleeves removed from the TVT once it was in correct position. The redundant portion TVT material was then excised at the skin line of the suprapubic incisions. Correct positioning of the DVT was then confirmed and the vaginal incision closed with 3-0 chromic in a running locking stitch. Pressure was maintained on the retropubic tissues for 5 minutes so as to reduce the risk subsequent bleeding or bruising. The midline of the anterior vaginal mucosa was then infiltrated with 0.5% Marcaine with epinephrine and a longitudinal incision of the vaginal mucosa in the midline was then created with 10. Blade. The vaginal mucosa was then dissected bilaterally so as to expose the pubis cervical fascia and bladder base. The bladder supports were then plicated in 2 layers using 0 Vicryl suture with excellent support of the bladder base reestablished. The redundant portion of vaginal mucosa was then excised and the vaginal incision closed with 0 Vicryl [id number]. A bivalve speculum was then placed in the vagina and the cervix visualized. The anterior lip of the cervix was then grasped with a single-tooth tenaculum. The uterus was sounded to 7 cm, the endocervical canal dilated slightly, and a VCare uterine manipulator with a medium colpotomy cup was placed. The umbilicus was then infiltrated with 0.5% Marcaine with epinephrine. A 1 cm umbilical incision was made transversely and a Veress needle was used to insufflate the abdominal cavity with carbon dioxide. Once the abdomen was appropriately insufflated, a 5 mm trocar and sleeve were then placed through the umbilical incision. The scope was placed through the trocar and the initial assessment of the intra-abdominal contents carried out. Lysis of adhesions was then carried out so as to be able to more fully expose the pelvis. A 2nd and 3rd 5 mm port was then placed 1st in the right mid quadrant from then the left mid quadrant by infiltration of the skin and subcutaneous tissues, a 1 cm transverse incision and insertion of the 5 mm bladeless port. Using a 3 puncture technique, the abdomen and pelvis were inspected laparoscopy and photographically documented. Uterus is mobilized with the VCare manipulator and attention turned to the left adnexa. Adhesions encasing the tube and ovary and the position of the ports themselves, made removal of the left adnexa impossible and therefore the dissection was then carried down using the PowerSeal device so as to divide the utero-ovarian ligament and the round ligament with blunt and sharp dissection of the broad down to the level of the uterine artery. The uterine artery was then skeletonized after development of a bladder flap, coagulated, and divided. Once hemostasis was assured on the left side attention was turned to the right and uterine ovarian ligament, round ligament, and broad ligament were dissected in a fashion exactly the same as it had been on the left. The right uterine artery was then visualized after skeletonization and coagulated and divided. The uterus was seen to arely after coagulation of both your arteries and the cup was identified through the vaginal muscularis at its insertion with the body of the cervix. Circumferential excision of the vaginal cup was accomplished without difficulty using monopolar current and the uterus mobilized. The uterus was then removed through the vagina. A 4th 5 mm port was then placed deep in the right lower quadrant and the vaginal cuff closed [id number] with a 2-0 PDS barbed suture incorporating the distal uterosacral ligaments on both sides. The uterosacral ligaments on both sides were then attached to the vaginal cuff on each side using 2-0 Ethibond sutures tied extracorporeally. Hemostasis was excellent, the abdomen was re-insufflated, and the pelvis inspected laparoscopically. The pelvis was inspected for any abnormality or bleeding, and the ureters were each seen to be peristalsing freely. With complete hemostasis assured, the pneumoperitoneum was vented and the ports removed. All of the 5 mm ports were then closed with 4-0 Monocryl on the skin using inverted interrupted sutures. Skin glue was placed and after the glue was dried, an appropriate dressing was applied. The case was then terminated, the patient awakened, and then transferred to PACU after having tolerated the procedure well. Complications: none Post-operative Condition: stable Disposition: PACU Plan for aftercare: Routine PACU care with plans for postoperative discharge in a.m..
--- NOTE | 2024-05-06 17:02 | PC.NURSE ---
In room 1 from PACU. VSS. Laboy draining and patent. LR 100. at bedside. Pt alert and oriented x3
[2024-05-06] MEDS: ACETAMINOPHEN 325 MG TABLET 650 MG PO (17:41)
[2024-05-06] MEDS: LACTATED RINGERS 1,000 ML 100 ML IV (17:41)
[2024-05-06] MEDS: OXYCODONE IR 5 MG TABLET PO ×2 (17:42→22:22)
[2024-05-06] MEDS: KETOROLAC 30 MG/ML VIAL IV (21:10)
[2024-05-07] MEDS: ACETAMINOPHEN 325 MG TABLET 650 MG PO ×2 (00:01→06:52)
[2024-05-07 03:00] VITALS: BP 107/74; PULSE 76; RESP 16; TEMP 36.8; O2SAT 98
[2024-05-07] MEDS: OXYCODONE IR 5 MG TABLET PO ×3 (03:11→12:44)
[2024-05-07] MEDS: KETOROLAC 30 MG/ML VIAL IV ×2 (03:11→09:34)
[2024-05-07 05:31] VITALS: BP 107/63; PULSE 68; RESP 18; TEMP 36.7; O2SAT 98
[2024-05-07 06:45] LABS: Add Manual Diff / Slide Review NO; Basophils Absolute Auto 0 /uL (0-100); Basophils Percent Auto 0.4 % (0-2); Eosinophils Absolute Auto 100 /uL (0-450); Eosinophils Percent Auto 0.6 % (2-4); Hematocrit 30.8 % (36-46); Hemoglobin 10.6 g/dL (12.0-16.0); Lymphocytes Absolute Auto 1100 /uL (1100-4500); Lymphocytes Percent Auto 12.1 % (25-40); Mean Corpuscular HGB Conc 34.3 % (30-36); Mean Corpuscular Hemoglobin 31.6 PG (26-34); Mean Corpuscular Volume 92.2 fL (80-100); Monocytes Absolute Auto 600 /uL (0-900); Monocytes Percent Auto 6.5 % (3-14); Neutrophils Absolute Auto 7300 /uL (1500-7000); Neutrophils Percent Auto 80.4 % (50-75); Platelet Count 212 X10^3/uL (150-400); Red Blood Cell Count 3.34 X10^6/uL (4.0-5.2); Red Cell Distribution Width 12.7 % (11.6-14.8)
[2024-05-07 08:01] VITALS: BP 110/61; PULSE 69; RESP 18; TEMP 36.6
[2024-05-07] MEDS: METFORMIN HCL 500 MG TABLET PO (08:02)
[2024-05-07] MEDS: APIXABAN 5 MG TABLET PO (08:10)
--- NOTE | 2024-05-07 09:45 | PM.DS.1 ---
History of Present Illness History of Present Illness Date Patient Seen: 05/07/24 Time Patient Seen: 09:46 Chief complaint: Lap total hysterectomy *OPB* Narrative: Ivett returns now a little more than 7 months following hysteroscopy with D&C for postmenopausal bleeding and thickened endometrium. Pathology at that time showed benign endocervical polyps and atrophic endometrium. Since her surgery, she has continued to spot episodically despite adjustment of her postmenopausal HRT regimen from combo patch to transdermal estradiol and oral micronized progesterone. In addition she feels as though she has increased sense of pelvic pressure ring and feel something at the vaginal opening which concerns her. Her Paps have always been normal with her most recent Pap performed by her primary care provider about a year ago. Review of systems is also positive for stress urine incontinence without an urge component. RWe had an extended discussion about the nature of pelvic organ prolapse, stress urinary incontinence, and potential causes for her persistent postmenopausal bleeding. We also discussed at length, potential options for treatment/correction of these various issues. Patient desires definitive therapy to eliminate postmenopausal bleeding and to treat her pelvic organ prolapse which seems to be becoming more symptomatic. After considering all options, patient desires to move forward with total laparoscopic hysterectomy and bilateral salpingo oophorectomy, with uterosacral ligament vault suspension, anterior colporrhaphy, and placement of mid urethral sling with cystoscopy. She presents today for her scheduled surgery. Discharge Providers Provider Date of admission: 05/06/2024 Discharge Date: 05/07/24 Primary care physician: Юлия Hernandez MD Discharge provider: Dakota Worrell MD Summary Hospital Course Discharge Diagnosis: Cystocele Stress urinary incontinence Postmenopausal bleeding Status post total laparoscopic hysterectomy, anterior colporrhaphy, and mid urethral sling placement Hospital Course: Ivett was admitted on 05/06/2024 and underwent an uneventful total laparoscopic hysterectomy with anterior colporrhaphy and mid urethral sling placement with cystoscopy. Full details of the procedure well summarized on my operative note of that date. Following surgery the patient has done extremely well with prompt return of bowel and bladder function, she is ambulating independently, tolerating regular diet, and her pain is well controlled with oral pain medications. She will be discharged at this time to home after counseling regarding precautionary symptoms, limitations of activity, medications, and plans for follow-up which will be in 2 weeks. Medications at discharge will include resumption of all preadmission medications as well as oxycodone 5 mg p.o. q.6 hours as needed for pain, dispensed 15 with no refills, and Cipro 500 mg p.o. b.i.d. x5 days for UTI prophylaxis following catheterization. Status at Discharge Cognitive/behavioral status at discharge: oriented Functional status at discharge: independent ambulation Overall status at discharge: patient is progressing back to baseline Time Spent with Patient Time spent: Less than 30 minutes Exam Vital Signs (past 8 hours): - 05/07/24 03:00 05/07/24 05:31 Temperature 98.3 F 98.0 F Pulse Rate 76 68 Respiratory Rate 16 18 Blood Pressure 107/74 107/63 Pulse Oximetry 98 98 Oxygen Delivery Method Room Air Const General: cooperative and comfortable Nutritional Appearance: average body habitus Orientation: alert and oriented x3 HENMT Head: normal to inspection, atraumatic and abrasion Ears: hearing grossly normal bilaterally Face and sinus: face symmetric Eyes General: appearance normal, both eyes and all related structures Conjunctivae: conjunctivae normal Sclera: sclerae normal EOM: EOM intact bilaterally Neck Neck: normal visual inspection Resp Effort & Inspection: normal respiratory effort and able to speak in complete sentences Auscultation: clear to auscultation bilaterally Cardio Rate: regular rate Rhythm: regular rhythm Heart Sounds: S1 normal, S2 normal and no murmurs GI Inspection: normal to inspection and incision (Surgical dressings clean and dry) Palpation: soft, no hepatosplenomegaly and tender (Mild, diffuse postsurgical tenderness) External Female Exam: other (No significant bleeding noted) Extrem General: no calf tenderness Psych Appearance: grossly normal Mental Status: mental status grossly normal Speech and Movement: speech and movement normal Mood: congruent mood Affect: normal affect Attitude: cooperative Thought Process: normal Thought Content: normal Judgment: judgment good Objective Labs 05/07/24 06:30 Labs: Laboratory Results - last 24 hr 05/07/24 06:30 WBC 9.0 RBC 3.34 L Hgb 10.6 L Hct 30.8 L MCV 92.2 MCH 31.6 MCHC 34.3 RDW 12.7 Plt Count 212 Neut % (Auto) 80.4 H Lymph % (Auto) 12.[address] % (Auto) 6.5 Eos % (Auto) 0.6 L Baso % (Auto) 0.4 Neut # (Auto) 7300 H Lymph # (Auto) 1100 [place] # (Auto) 600 Eos # (Auto) 100 Baso # (Auto) 0 PFSH Medical History (Updated 04/07/24 @ 14:44 by Dakota Worrell MD) Onychocryptosis Family history of heart disease Breast cancer screening Family history of colon cancer requiring screening colonoscopy Screening for cervical cancer Health maintenance examination Family history of early CAD Arthritis Insomnia Surgical History (Updated 05/03/24 @ 14:32 by Abena Sheth RN) History of total left knee replacement History of hysteroscopy (08/07/23) Hx of shoulder surgery History of delivery Social History household members: spouse and children Smoking Status: Never smoker alcohol intake: current Discharge Assessment & Plan Assessment and Plan Assessment: Cystocele Stress urinary incontinence Postmenopausal bleeding Status post total laparoscopic hysterectomy, anterior colporrhaphy, and mid urethral sling placement Plan of Treatment: Routine postoperative care with follow-up planned for 2 weeks after surgery Discharge Plan Discharge Plan Patient Disposition: Home Provider Discharge Comment: Please review the written instructions you received when you were discharged from the hospital. Your follow-up appointment will be scheduled for 2 weeks after your surgery and I look forward to seeing you then. If however in the meanwhile you have any issues, concerns, questions, please contact our office either through the office phone at [phone], or via the patient portal. Discharge orders & Medications Discharge Orders: Discharge (Order); Ordered 05/07/24 Ordered By: Dakota Worrell Prescriptions: New oxycodone 5 mg Tablet 5 mg PO Q6H PRN (Reason: Pain, Moderate (4-6)) Qty: 12 0RF Continued trazodone 150 mg tablet 150 mg PO BEDTIME PRN (Reason: insomnia) Qty: 90 3RF rosuvastatin 40 mg tablet 40 mg PO DAILY metformin 500 mg tablet 500 mg PO BID estradiol [Vivelle-Dot] 0.05 mg/24 hr patch semiweekly 1 patch transdermal 2XW Qty: 24 4RF Rx Instructions: apply 1 patch for 3 days alternating with 1 patch for 4 days each week progesterone micronized [Prometrium] 100 mg capsule 100 mg PO BEDTIME Qty: 30 12RF No Action nystatin-triamcinolone 100,000-0.1 unit/g-% cream 1 applic topical BID PRN (Reason: rash, itching) Qty: 30 1RF Follow up/Referrals: Юлия Hernandez MD [Primary Care Provider] - Dakota Worrell MD [Physician] - Diet/Activity/Treatments Diet: Diet as Tolerated Activity: As tolerated Other treatments: [id number] Tylenol and/or ibuprofen may be used for additional pain. [id number] stool softeners and/or MiraLax may be used as needed constipation Skin/Wound/Dressing Care Report to your healthcare provider any signs of infection, such as:: chills, fever, increased pain, unusual drainage and unusual redness Visit Report/Discharge Packet Instructions: DI for Hysterectomy, DI for Laparoscopy, Hysterectomy -- Laparoscopic Surgery, DI for Prescription Opioid Use Stand Alone Forms: Stroke Signs & Symptoms, Surgery Discharge Print Language: Chinese Discharge Data Primary Care Provider: Юлия Hernandez Attending Provider: Dakota Worrell Quality VTE Deep Vein Thrombosis/Pulmonary Embolism Present on Admission: No
--- NOTE | 2024-05-07 10:09 | PC.NURSE ---
05/07/2024 @0855 RN performed post residual bladder scan per Dr. Worrell verbal order and noted >124 mL on scanner. RN updated Dr. Worrell @[id number]. RN ordered to perform additional bladder scan after next void.
--- NOTE | 2024-05-07 10:12 | PC.NURSE ---
05/07/2024 RN assessed surgical dressings and noted all were clean, dry, and intact and no drainage. PT tolerated well and stated she felt slight pain in her pubis area w/ movement.
--- NOTE | 2024-05-07 11:04 | PC.NURSE ---
05/07/2024 @1101 RN bladder scanned an additional time post residual and noted 50mL in bladder. PT removed hat from toilet but stated she emptied a small amount of urine into toilet. Pt now requesting to rest before discharge teaching in an hour. No complaints by patient at this time.
[2024-05-07 12:21] VITALS: BP 103/57; PULSE 74; RESP 19; TEMP 36.9; O2SAT 99
--- NOTE | 2024-05-07 12:56 | PC.NURSE ---
05/07/2024 [id number] RN reviewed DC teaching w/ patient and patient . RN reviewed post op expectations, recovery, and possible complications and when to call provider. Pt and verbalized understanding and have no further questions at this time.
== END 2024-05-07 12:49 | disposition home or self-care (01) ==
LOC: OR 10:53 → AC 10:54 → LABOR 14:09
PROVIDERS: PCP Family Medicine; Referring Provider Obstetrics & Gynecology; Visit Provider Obstetrics & Gynecology
PROC: 0UT94ZZ Resection of Uterus, Percutaneous Endoscopic Approach (ICD-10-PCS; CPT 58570; principal; 2024-05-06 12:00)
PROC: (CPT 58570; 2024-05-06 12:00)
PROC: 0TSD0ZZ Reposition Urethra, Open Approach (ICD-10-PCS; CPT 58570; 2024-05-06 12:00)
DX: N95.0 Postmenopausal bleeding (principal); N81.2 Incomplete uterovaginal prolapse; N39.3 Stress incontinence (female) (male); D25.9 Leiomyoma of uterus, unspecified; D26.9 Other benign neoplasm of uterus, unspecified; N73.6 Female pelvic peritoneal adhesions (postinfective)
CPT/HCPCS: 58570; 57240; 57288; 36415; 82962; 85025; C1771; J0171; J0330; J0690; J1100; J1885; J2250; J2405; J2704; J2795; J3010; J3490